=== PATIENT | male | born 1970 | race Two or more races ===

== ENCOUNTER 2016-08-27 13:44 | Emergency (ER) | payer MEDICAID ==
[~2016-08-27] VITALS: Ht 160 cm; Wt 74.7 kg
[2016-08-27] MEDS ORDERED: HYDROcodone/APAP 5/325 TABLET ONE (14:17)
[2016-08-27] MEDS ORDERED: SODIUM CHLORIDE FLUSH 10ML SYR IVF ONE (14:30)
[2016-08-27] MEDS ORDERED: SODIUM CHLORIDE 0.9% 1,000ML IVBOLUS ONE (14:30)
[2016-08-27] MEDS ORDERED: HYDROcodone/APAP 5/325 TABLET PO ONE (14:30)
[2016-08-27 14:37] LABS: BLOOD UREA NITROGEN 12 mg/dL (7-18)
[2016-08-27] MEDS ORDERED: MORPHINE SULFATE 4 MG/ML, 1ML ONE (16:01)
[2016-08-27] MEDS ORDERED: BACITRACIN ZINC OINT 500U/GM, 0.9 GM ONE (16:20)
[2016-08-27] MEDS ORDERED: MORPHINE SULFATE 4 MG/ML, 1ML IVPush ONE (16:30)
[2016-08-27] MEDS ORDERED: ONDANSETRON 2MG/ML, 2ML ONE (16:36)
[2016-08-27] MEDS ORDERED: ONDANSETRON 2MG/ML, 2ML IVPush ONE (17:00)
[2016-08-27 17:20] VITALS: BP 114/78
== END 2016-08-27 17:22 | disposition home or self-care (01) ==
LOC: ED 16:24
DX: T23.201A Burn of second degree of right hand, unspecified site, initial encounter (principal); T31.0 Burns involving less than 10% of body surface; T79.9XXA Unspecified early complication of trauma, initial encounter; W86.8XXA Exposure to other electric current, initial encounter; Y93.89 Activity, other specified; Y92.89 Other specified places as the place of occurrence of the external cause; Y99.8 Other external cause status
CPT/HCPCS: 36415; 70150; 72050; 80048; 82040; 82550; 85025; 93005; 96361; 96374; 96375; 99285; J2405; J7030

== ENCOUNTER 2016-12-17 22:50 | Emergency (ER) | payer MEDICAID ==
[~2016-12-17] VITALS: Ht 162.6 cm; Wt 75.0 kg
[2016-12-17] MEDS ORDERED: SODIUM CHLORIDE 0.9% 1,000ML IVBOLUS ONE (23:00)
[2016-12-17] MEDS ORDERED: LORazepam 2 MG/ML, 1ML IVPush ONE (23:00)
[2016-12-17] MEDS ORDERED: SODIUM CHLORIDE FLUSH 10ML SYR IVF ONE (23:00)
[2016-12-17 23:22] LABS: HEMATOCRIT 44.5 % (39.2-51.8); HEMOGLOBIN 14.8 g/dL (13.7-18.0); WHITE BLOOD COUNT 11.3 x10^3/uL (3.4-10)
[2016-12-17] MEDS ORDERED: LORazepam 2 MG/ML, 1ML ONE (23:22)
[2016-12-17 23:41] LABS: ASPARTATE AMINO TRANSFERASE 25 U/L (15-37); BLOOD UREA NITROGEN 16 mg/dL (7-18)
[2016-12-18 01:22] LABS: DAU SCREEN DISCLAIMER
[2016-12-18 02:43] VITALS: BP 119/63
== END 2016-12-18 02:46 | disposition home or self-care (01) ==
LOC: ED 23:48
DX: R56.9 Unspecified convulsions (principal); J45.909 Unspecified asthma, uncomplicated; F17.200 Nicotine dependence, unspecified, uncomplicated; F12.10 Cannabis abuse, uncomplicated
CPT/HCPCS: 36415; 70450; 80053; 80307; 81003; 83735; 85025; 93005; 96374; 99285; J2060; J7030

== ENCOUNTER 2017-03-16 09:37 | Emergency (ER) | payer MEDICAID ==
[~2017-03-16] VITALS: Ht 165.1 cm; Wt 75.3 kg
[2017-03-16] MEDS ORDERED: ALBUTEROL/IPRATROPIUM 2.5MG/0.5MG, 3 ML ONE ×2 (09:59→10:28)
[2017-03-16] MEDS ORDERED: ALBUTEROL/IPRATROPIUM 2.5MG/0.5MG, 3 ML NPPB SCH (10:00)
[2017-03-16 11:03] VITALS: BP 102/80
== END 2017-03-16 11:05 | disposition home or self-care (01) ==
LOC: ED 09:53
DX: J45.901 Unspecified asthma with (acute) exacerbation (principal); J20.9 Acute bronchitis, unspecified; B96.89 Other specified bacterial agents as the cause of diseases classified elsewhere
CPT/HCPCS: 71020; 93005; 94640; 99284; J7512; J7620

== ENCOUNTER 2018-06-09 15:43 | Inpatient (IN) | payer MEDICAID ==
[~2018-06-09] VITALS: Ht 160 cm; Wt 71.4 kg
[2018-06-09] MEDS ORDERED: ALBUTEROL/IPRATROPIUM 2.5MG/0.5MG, 3 ML NPPB ONE (16:00)
--- NOTE | 2018-06-09 16:17 | NUR ---
PATIENT SAFE IN BED, MEDICATED WITH PREDNISONE PER MAR, CALL LIGHT IN REACH, BED IN LOW POSITION WITH HOB ELEVATED, DENIES ADDITIONAL NEEDS, AWAITING RT TO SEE PATIENT.
[2018-06-09] MEDS ORDERED: ALBUTEROL/IPRATROPIUM 2.5MG/0.5MG, 3 ML ONE (16:25)
[2018-06-09] MEDS ORDERED: ALBUTEROL/IPRATROPIUM 2.5MG/0.5MG, 3 ML NPPB PRN (17:00)
[2018-06-09 17:18] LABS: RAPID INFLUENZA A POSITIVE (Negative); RAPID INFLUENZA B Negative (Negative)
[2018-06-09] MEDS ORDERED: OSELTAMIVIR 75 MG CAPSULE PO ONE (18:00)
[2018-06-09] MEDS ORDERED: OSELTAMIVIR 75 MG CAPSULE ONE (18:25)
[2018-06-09] MEDS ORDERED: IBUPROFEN 600 MG TABLET ONE (18:25)
[2018-06-09] MEDS ORDERED: SODIUM CHLORIDE FLUSH 10ML SYR IVF ONE (18:30)
[2018-06-09] MEDS ORDERED: SODIUM CHLORIDE 0.9% 1,000ML IVBOLUS ONE (18:30)
[2018-06-09 18:33] LABS: BASOPHILS % (AUTO) 0 % (0-1); EOSINOPHILS # (AUTO) 0.15 x10^3/uL (0-0.4); EOSINOPHILS % (AUTO) 2 % (1-7); LYMPHOCYTES # (AUTO) 0.75 x10^3/uL (1-3.4); LYMPHOCYTES % (AUTO) 7 % (22-44); MD NO; MEAN CORPUSCULAR HEMOGLOBIN 32.6 pg (27.5-34.5); MEAN CORPUSCULAR HGB CONC 34.3 g/dL (33.2-36.2); MEAN PLATELET VOLUME 7.7 fL (7.4-10.4); MONOCYTES # (AUTO) 0.26 x10^3/uL (0.2-0.8); MONOCYTES % (AUTO) 3 % (2-9); NEUTROPHILS % (AUTO) 89 % (42-75); PLATELET COUNT 248 x10^3/uL (130-400); RED BLOOD COUNT 4.82 x10^6/uL (4.38-5.82)
[2018-06-09 18:44] LABS: ALBUMIN 3.5 g/dL (3.4-5.0); ANION GAP 7 mmol/L (5-15); CALCIUM 8.6 mg/dL (8.5-10.1); CHLORIDE 108 mmol/L (98-107); CREATININE 1.17 mg/dL (0.7-1.3)
[2018-06-09] MEDS ORDERED: IBUPROFEN 600 MG TABLET PO ONE (19:00)
--- NOTE | 2018-06-09 19:07 | NUR ---
report received from elham davidson. pt resting on gurkameron, family at bedside, siderails up x2, call light within reach. awaiting room for transfer
[2018-06-09 20:03] VITALS: BP 119/65
[2018-06-09] MEDS ORDERED: 0.9 % SODIUM CHLORIDE 10 ML VIAL IV SCH (23:30)
[2018-06-10] MEDS ORDERED: hydrALAzine 20 MG/ML, 1ML IVPush PRN
[2018-06-10] MEDS ORDERED: LIDODERM 5% PATCH TD PRN
[2018-06-10] MEDS ORDERED: NICOTINE 7 MG/24 HR PATCH.TD24 TD SCH
[2018-06-10] MEDS ORDERED: ENOXAPARIN 40 MG/0.4 ML SQ SCH
[2018-06-10] MEDS ORDERED: ACETAMINOPHEN 325 MG TABLET PO PRN
[2018-06-10] MEDS ORDERED: TEMAZEPAM 15 MG CAPSULE PO PRN
[2018-06-10] MEDS ORDERED: ONDANSETRON ODT 4 MG PO PRN
[2018-06-10] MEDS ORDERED: BISACODYL 10 MG SUPP PR PRN
[2018-06-10] MEDS ORDERED: DOCUSATE 100 MG CAPSULE PO PRN
[2018-06-10] MEDS ORDERED: ALBUTEROL/IPRATROPIUM 2.5MG/0.5MG, 3 ML ONE (00:09)
[2018-06-10] MEDS: methylPREDNISolone SOD SUCC 40 MG/ML IVPush SCH ×4 (00:49→19:56)
[2018-06-10 00:56] VITALS: BP 113/63
[2018-06-10] MEDS: SODIUM CHLORIDE 0.9% 1,000 ML IV SCH ×3 (02:09→15:30)
[2018-06-10 05:28] LABS: ANION GAP 7 mmol/L (5-15); CALCIUM 8.1 mg/dL (8.5-10.1); CHLORIDE 111 mmol/L (98-107)
[2018-06-10 05:30] LABS: CREATININE 1.19 mg/dL (0.7-1.3)
[2018-06-10 05:47] LABS: BASOPHILS % (AUTO) 0 % (0-1); EOSINOPHILS % (AUTO) 0 % (1-7); LYMPHOCYTES # (AUTO) 0.57 x10^3/uL (1-3.4); LYMPHOCYTES % (AUTO) 7 % (22-44); MD NO; MEAN CORPUSCULAR HEMOGLOBIN 32.6 pg (27.5-34.5); MEAN CORPUSCULAR HGB CONC 34.2 g/dL (33.2-36.2); MEAN CORPUSCULAR VOLUME 95.2 fL (81-97); MONOCYTES # (AUTO) 0.15 x10^3/uL (0.2-0.8); MONOCYTES % (AUTO) 2 % (2-9); NEUTROPHILS # (AUTO) 7.39 x10^3/uL (1.8-6.8); NEUTROPHILS % (AUTO) 91 % (42-75); PLATELET COUNT 228 x10^3/uL (130-400); RED CELL DISTRIBUTION WIDTH 13.3 % (9.4-14.8)
[2018-06-10] MEDS: ALBUTEROL/IPRATROPIUM 2.5MG/0.5MG, 3 ML NPPB SCH ×3 (05:52→15:30)
[2018-06-10 07:50] VITALS: BP 118/70
[2018-06-10] MEDS: OSELTAMIVIR 75 MG CAPSULE PO SCH ×2 (08:31→21:55)
[2018-06-10] MEDS ORDERED: KETOROLAC 30 MG/1 ML IVPush PRN (10:00)
[2018-06-10 13:35] VITALS: BP 127/70
[2018-06-10] MEDS: BENZONATATE 100 MG CAPSULE PO SCH ×2 (15:20→21:55)
[2018-06-10 18:15] VITALS: BP 122/69
[2018-06-10] MEDS ORDERED: OSEL75CA PO (22:48)
[2018-06-10] MEDS ORDERED: BENZ100C PO (22:50)
[2018-06-10] MEDS ORDERED: PRED20TA PO (22:50)
== END 2018-06-10 23:00 | disposition home or self-care (01) | DRG 871 ==
LOC: ED 18:48 → EDIP 18:53 → ED 19:26 → 4NOR 19:50
PROVIDERS: ADMIT Internal Medicine; ATTEND Internal Medicine
DX: A41.9 Sepsis, unspecified organism (principal); J96.01 Acute respiratory failure with hypoxia; J44.1 Chronic obstructive pulmonary disease with (acute) exacerbation; J45.52 Severe persistent asthma with status asthmaticus; J10.1 Influenza due to other identified influenza virus with other respiratory manifestations; G40.909 Epilepsy, unspecified, not intractable, without status epilepticus; Z87.891 Personal history of nicotine dependence; Z83.3 Family history of diabetes mellitus; Z81.1 Family history of alcohol abuse and dependence; Z88.0 Allergy status to penicillin; Z88.6 Allergy status to analgesic agent
CPT/HCPCS: 36415; 87400; 99291; J7620; 71045; 80048; 82040; 85025; 93005; 94640; G0378; J1650; J2920; J7030; J7512

== ENCOUNTER 2018-08-16 17:03 | Emergency (ER) | payer MEDICAID ==
[~2018-08-16] VITALS: Ht 160 cm; Wt 73.6 kg
[~2018-08-16 17:03] MED LIST: BENZ100C PO; OSEL75CA PO; PRED20TA PO
[2018-08-16 17:06] VITALS: BP 130/86
--- NOTE | 2018-08-16 17:31 | NUR ---
Patient/Caregiver given discharge instructions and they have confirmed that they understand the instructions. Patient ambulatory with steady gait. PT LEFT WITH ALL PERSONAL BELONGINGS.
== END 2018-08-16 17:33 | disposition home or self-care (01) ==
LOC: ED 17:15
DX: B02.9 Zoster without complications (principal); J45.909 Unspecified asthma, uncomplicated; F17.200 Nicotine dependence, unspecified, uncomplicated
CPT/HCPCS: 99283

== ENCOUNTER 2018-09-10 11:15 | Emergency (ER) | payer MEDICAID ==
[~2018-09-10] VITALS: Ht 160 cm; Wt 72.1 kg
[2018-09-10 11:18] VITALS: BP 116/79
[2018-09-10] MEDS ORDERED: LIDOCAINE-MPF 1%, 5ML ONE (11:24)
[2018-09-10] MEDS ORDERED: BACITRACIN ZINC OINT 500U/GM, 0.9 GM ONE (11:55)
--- NOTE | 2018-09-10 12:24 | NUR ---
finger dressed with bacitracin dressing
== END 2018-09-10 12:25 | disposition home or self-care (01) ==
LOC: ED 11:45
DX: S61.210A Laceration without foreign body of right index finger without damage to nail, initial encounter (principal); X58.XXXA Exposure to other specified factors, initial encounter; Y93.89 Activity, other specified; Y92.69 Other specified industrial and construction area as the place of occurrence of the external cause; Y99.8 Other external cause status
CPT/HCPCS: 99283

== ENCOUNTER 2018-11-28 11:34 | Emergency (ER) | payer MEDICAID ==
[~2018-11-28] VITALS: Ht 160 cm; Wt 69.0 kg
[~2018-11-28 11:34] MED LIST changes: -OSEL75CA PO; +OSEL75CA26 PO
--- NOTE | 2018-11-28 11:44 | NUR ---
PT AMBULATORY TO ED ROOM 27 W/ LIMPING GAIT. DR PERKINS TO ROOM FOR EXAM. PT STATES HE STEPPED OFF 12 INCH STEP, FELT PAIN RT LOWER BACK. DENIES NUMBNESS/TINGLING TO LE'S. NO PAIN MEDS TAKEN. DENIES URINARY AND BM SX.
[2018-11-28] MEDS ORDERED: MOME13HF2 INH (11:53)
[2018-11-28] MEDS ORDERED: ALBU6.7H8 INH (11:53)
[2018-11-28] MEDS ORDERED: DIAZEPAM 5 MG TABLET PO ONE (12:00)
[2018-11-28] MEDS ORDERED: DIAZEPAM 5 MG TABLET ONE (12:00)
--- NOTE | 2018-11-28 12:08 | NUR ---
PT STATES HE HAS TRANSPORTATION HOME, WHEN DC'D. VALIUM GIVEN PER EMAR. PT RESTING ON BED, SIDE RAIL UP X1, CALL LIGHT W/IN REACH.
--- NOTE | 2018-11-28 13:19 | NUR ---
DOZING ON BED IN CURLED LT LATERAL POSITION. STATES SPASM HAS EASED A LITTLE, BUT STILL PAINFUL.
[2018-11-28 13:20] VITALS: BP 109/69
[2018-11-28] MEDS ORDERED: CYCLOBENZAPRINE 10 MG TABLET ONE (13:27)
[2018-11-28] MEDS ORDERED: HYDROcodone/APAP 5/325 TABLET ONE (13:27)
[2018-11-28] MEDS ORDERED: HYDROcodone/APAP 5/325 TABLET PO ONE (13:30)
[2018-11-28] MEDS ORDERED: CYCLOBENZAPRINE 10 MG TABLET PO ONE (13:30)
== END 2018-11-28 13:51 | disposition home or self-care (01) ==
LOC: ED 12:16
DX: S39.012A Strain of muscle, fascia and tendon of lower back, initial encounter (principal); J45.909 Unspecified asthma, uncomplicated; F17.200 Nicotine dependence, unspecified, uncomplicated; X58.XXXA Exposure to other specified factors, initial encounter; Y93.89 Activity, other specified; Y92.89 Other specified places as the place of occurrence of the external cause; Y99.8 Other external cause status
CPT/HCPCS: 99284

== ENCOUNTER 2018-12-10 05:14 | Emergency (ER) | payer MEDICAID ==
[~2018-12-10] VITALS: Ht 160 cm; Wt 69.5 kg
[2018-12-10 06:38] VITALS: BP 108/69
== END 2018-12-10 06:40 | disposition home or self-care (01) ==
LOC: ED 05:43
DX: J02.9 Acute pharyngitis, unspecified (principal); M79.10 Myalgia, unspecified site; J45.909 Unspecified asthma, uncomplicated; F17.200 Nicotine dependence, unspecified, uncomplicated; R50.81 Fever presenting with conditions classified elsewhere
CPT/HCPCS: 87081; 87147; 87880; 99283

== ENCOUNTER 2019-12-30 16:41 | Emergency (ER) | payer MEDICAID ==
[~2019-12-30] VITALS: Ht 160 cm; Wt 71.0 kg
[~2019-12-30 16:41] MED LIST changes: +ALBU6.7H8 INH; +MOME13HF2 INH
[2019-12-30] MEDS ORDERED: DIPHENHYDRAMINE 50 MG/ML, 1ML ONE (16:51)
[2019-12-30] MEDS ORDERED: FAMOTIDINE 20 MG/2 ML ONE (16:51)
[2019-12-30] MEDS ORDERED: EPINEPHRINE 1 MG/ML, 1ML ONE (16:54)
[2019-12-30] MEDS ORDERED: methylPREDNISolone SOD SUCC 125 MG/2 ML ONE (16:54)
--- NOTE | 2019-12-30 16:58 | NUR ---
TASK RN: PIV ESTABLISHED. PT TOLERATED WITH NO COMPLICATIONS.
[2019-12-30] MEDS ORDERED: EPINEPHRINE 1 MG/ML, 1ML SQ ONE (17:00)
[2019-12-30 17:11] VITALS: BP 122/74
--- NOTE | 2019-12-30 17:26 | NUR ---
LATE ENTRY D/T PT CARE: PT TO T2 FROM TRIAGE WITH CO ALLERGIC RXN AFTER EATING SHELL FISH, HX OF SAME WHICH WAS RELIEVED WITH BENADRYL. PT A&OX4, SPEECH SLIGHTLY MUFFLED, GENERALIZED HIVES/RASH NOTED. PT DENIES DIFFICULTY BREATHING/SWALLOWING BUT STATES THAT HIS "THROAT HURTS, LIKE ITS DRY". DENIES N/V/DROOLING. PT SPEAKING IN FULL SENTENCES WO DIFFICULTY; SPO2 >90% ON RA. BP/SPO2/ECG MONITORING IN PLACE. NSR ON MONITOR. ERP AT BEDSIDE FOR INITIAL ASSESSMENT. PT MEDICATED PER VERBAL ORDERS INCLUDING EPI IM. SO AT BEDSIDE.
[2019-12-30] MEDS ORDERED: DIPHENHYDRAMINE 50 MG/ML, 1ML IVPush ONE (17:30)
[2019-12-30] MEDS ORDERED: methylPREDNISolone SOD SUCC 125 MG/2 ML IVPush ONE (17:30)
[2019-12-30] MEDS ORDERED: FAMOTIDINE 20 MG/2 ML IVPush ONE (17:30)
--- NOTE | 2019-12-30 17:35 | NUR ---
PT RESTING CALMLY IN GURNEY W EYES CLOSED, EVEN/REGULAR RESIRATIONS NOTED. PT EASILY ARROUSABLE TO VOICE AND REPORTS RELIEF OF SYMPTOMS AT THIS TIME. PT/SO DENY NEEDS
--- NOTE | 2019-12-30 18:45 | NUR ---
PT CONTINUES TO DENY WORSENING S/S, REPORTS "FEELING GREAT". VSS. SPEECH LESS MUFFLED. DC EDUCATION PROVIDED PT DEMONSTRATES UNDERSTANDING. PT TRANSFERED SELF TO WHEELCHAIR, WHEELED TO DC WITH RN AND SO. SO TO TRANSPORT PT HOME.
== END 2019-12-30 19:06 | disposition home or self-care (01) ==
LOC: ED 18:32
DX: L50.9 Urticaria, unspecified (principal); T78.1XXA Other adverse food reactions, not elsewhere classified, initial encounter; J45.909 Unspecified asthma, uncomplicated; Z87.891 Personal history of nicotine dependence; X58.XXXA Exposure to other specified factors, initial encounter; Y93.89 Activity, other specified; Y92.89 Other specified places as the place of occurrence of the external cause; Y99.8 Other external cause status
CPT/HCPCS: 96372; 96374; 96375; 99284; J0171; J1200; J2930; J3490

== ENCOUNTER 2020-01-08 03:02 | Emergency (ER) | payer MEDICAID ==
[~2020-01-08] VITALS: Ht 160 cm; Wt 71.7 kg
[2020-01-08] MEDS ORDERED: MORPHINE SULFATE 4 MG/ML, 1ML ONE ×2 (03:25→04:26)
[2020-01-08] MEDS ORDERED: ONDANSETRON 2MG/ML, 2ML ONE ×2 (03:26→04:26)
[2020-01-08] MEDS ORDERED: ONDANSETRON 2MG/ML, 2ML IVPush ONE ×2 (03:30→04:30)
[2020-01-08] MEDS ORDERED: MORPHINE SULFATE 4 MG/ML, 1ML IVPush ONE ×2 (03:30→04:30)
[2020-01-08 03:38] LABS: BASOPHILS # (AUTO) 0.05 x10^3/uL (0-0.1); BASOPHILS % (AUTO) 1 % (0-1); EOSINOPHILS % (AUTO) 5 % (1-7); LYMPHOCYTES # (AUTO) 4.33 x10^3/uL (1-3.4); LYMPHOCYTES % (AUTO) 45 % (22-44); MD NO; MEAN CORPUSCULAR HEMOGLOBIN 31.7 pg (27.5-34.5); MEAN CORPUSCULAR HGB CONC 32.4 g/dL (33.2-36.2); MEAN CORPUSCULAR VOLUME 97.8 fL (81-97); MEAN PLATELET VOLUME 7.7 fL (7.4-10.4); MONOCYTES # (AUTO) 1.06 x10^3/uL (0.2-0.8); MONOCYTES % (AUTO) 11 % (2-9); NEUTROPHILS # (AUTO) 3.71 x10^3/uL (1.8-6.8); NEUTROPHILS % (AUTO) 38 % (42-75); PLATELET COUNT 256 x10^3/uL (130-400); RED BLOOD COUNT 4.59 x10^6/uL (4.38-5.82); RED CELL DISTRIBUTION WIDTH 13.4 % (9.4-14.8)
--- NOTE | 2020-01-08 03:45 | NUR ---
Pt provided with urinal, attempting to provide urine sample post medication administration. Pt states "i haven't been able to pee since this afternoon because it is too painful."
[2020-01-08 03:48] LABS: ANION GAP 7 mmol/L (5-15); CALCIUM 8.7 mg/dL (8.5-10.1); CHLORIDE 107 mmol/L (98-107)
[2020-01-08 03:50] LABS: CREATININE 1.35 mg/dL (0.7-1.3)
--- NOTE | 2020-01-08 04:15 | NUR ---
Urine sample collected and sent to lab
[2020-01-08 04:35] LABS: MICROSCOPIC AUTO
[2020-01-08 05:15] VITALS: BP 118/76
== END 2020-01-08 05:17 | disposition home or self-care (01) ==
LOC: ED 03:38
DX: N13.2 Hydronephrosis with renal and ureteral calculous obstruction (principal); R10.31 Right lower quadrant pain; F17.210 Nicotine dependence, cigarettes, uncomplicated; F12.10 Cannabis abuse, uncomplicated; R11.0 Nausea; J45.909 Unspecified asthma, uncomplicated; F10.10 Alcohol abuse, uncomplicated; K57.90 Diverticulosis of intestine, part unspecified, without perforation or abscess without bleeding
CPT/HCPCS: 36415; 74176; 80048; 81001; 85025; 96374; 96375; 96376; 99284; 99406; J2270; J2405

== ENCOUNTER 2020-06-03 01:06 | Emergency (ER) | payer MEDICAID ==
[~2020-06-03] VITALS: Ht 160 cm; Wt 75.0 kg
[2020-06-03] MEDS ORDERED: methylPREDNISolone SOD SUCC 125 MG/2 ML ONE (01:25)
[2020-06-03] MEDS ORDERED: EPINEPHRINE 1 MG/ML, 1ML ONE (01:25)
[2020-06-03] MEDS ORDERED: DIPHENHYDRAMINE 50 MG/ML, 1ML ONE (01:25)
[2020-06-03] MEDS ORDERED: FAMOTIDINE 20 MG/2 ML ONE (01:25)
[2020-06-03] MEDS ORDERED: DIPHENHYDRAMINE 50 MG/ML, 1ML IVPush ONE (01:30)
[2020-06-03] MEDS ORDERED: FAMOTIDINE 20 MG/2 ML IVPush ONE (01:30)
[2020-06-03] MEDS ORDERED: methylPREDNISolone SOD SUCC 125 MG/2 ML IVPush ONE (01:30)
[2020-06-03] MEDS ORDERED: EPINEPHRINE 1 MG/ML, 1ML SQ ONE (01:30)
[2020-06-03] MEDS ORDERED: SODIUM CHLORIDE 0.9% 1,000ML IVBOLUS ONE (01:30)
[2020-06-03 01:42] LABS: BASOPHILS % (AUTO) 1 % (0-1); EOSINOPHILS % (AUTO) 4 % (1-7); LYMPHOCYTES % (AUTO) 41 % (22-44); MEAN CORPUSCULAR HEMOGLOBIN 32.6 pg (27.5-34.5); MEAN CORPUSCULAR HGB CONC 34.3 g/dL (33.2-36.2); MEAN PLATELET VOLUME 7.6 fL (7.4-10.4); MONOCYTES % (AUTO) 8 % (2-9); NEUTROPHILS % (AUTO) 46 % (42-75); PLATELET COUNT 260 x10^3/uL (130-400); RED BLOOD COUNT 4.45 x10^6/uL (4.38-5.82); RED CELL DISTRIBUTION WIDTH 12.7 % (9.4-14.8)
[2020-06-03 01:50] LABS: MD NO
[2020-06-03 01:53] LABS: ALBUMIN 3.2 g/dL (3.4-5.0); ANION GAP 7 mmol/L (5-15); CALCIUM 8.5 mg/dL (8.5-10.1); CHLORIDE 113 mmol/L (98-107); CREATININE 1.16 mg/dL (0.7-1.3)
--- NOTE | 2020-06-03 03:08 | NUR ---
Pt states feeling better. In bed, resting, awakes to verbal. Pt denies any needs at this time. Family at bedside. Call light in reach. vss
[2020-06-03 04:35] VITALS: BP 105/63
--- NOTE | 2020-06-03 04:36 | NUR ---
Pt dc'd with written and verbal instructions. Pt and state they understand. Rx gone over with patient with understanding. IV dc'd intact. Pt instructed not to drive, is driving patient. Pt ambulatory out of ED without difficulty. Pt MOA, stable VS.
== END 2020-06-03 04:38 | disposition home or self-care (01) ==
LOC: ED 02:08
DX: R21 Rash and other nonspecific skin eruption (principal); T78.1XXA Other adverse food reactions, not elsewhere classified, initial encounter; R06.02 Shortness of breath; J45.909 Unspecified asthma, uncomplicated; Z87.891 Personal history of nicotine dependence; X58.XXXA Exposure to other specified factors, initial encounter; Y93.89 Activity, other specified; Y92.89 Other specified places as the place of occurrence of the external cause; Y99.8 Other external cause status
CPT/HCPCS: 36415; 71045; 80048; 82040; 85025; 96361; 96372; 96374; 96375; 99285; J0171; J1200; J2930; J7030

== ENCOUNTER 2020-10-31 15:45 | Emergency (ER) | payer MEDICAID ==
[~2020-10-31] VITALS: Ht 160 cm; Wt 69.8 kg
--- NOTE | 2020-10-31 16:27 | NUR ---
residential builder: Pt ambulatory to room from lobby at this time.
[2020-10-31 16:39] LABS: MICROSCOPIC INDICATED
[2020-10-31] MEDS ORDERED: ONDANSETRON 2MG/ML, 2ML ONE (16:55)
[2020-10-31] MEDS ORDERED: MORPHINE SULFATE 4 MG/ML, 1ML ONE ×2 (16:56→18:46)
[2020-10-31] MEDS ORDERED: SODIUM CHLORIDE FLUSH 10ML SYR IVF ONE (17:00)
[2020-10-31] MEDS ORDERED: ONDANSETRON 2MG/ML, 2ML IVPush ONE (17:00)
[2020-10-31] MEDS: MORPHINE SULFATE 4 MG/ML, 1ML IVPush PRN ×2 (17:11→18:50)
[2020-10-31 17:40] LABS: BASOPHILS % (AUTO) 0 % (0-1); EOSINOPHILS % (AUTO) 1 % (1-7); LYMPHOCYTES % (AUTO) 11 % (22-44); MEAN CORPUSCULAR HEMOGLOBIN 32.7 pg (27.5-34.5); MEAN CORPUSCULAR HGB CONC 33.8 g/dL (33.2-36.2); MEAN PLATELET VOLUME 7.8 fL (7.4-10.4); MONOCYTES % (AUTO) 6 % (2-9); NEUTROPHILS % (AUTO) 82 % (42-75); PLATELET COUNT 272 x10^3/uL (130-400); RED BLOOD COUNT 4.68 x10^6/uL (4.38-5.82); RED CELL DISTRIBUTION WIDTH 13.3 % (9.4-14.8)
[2020-10-31 17:55] LABS: ALANINE AMINOTRANSFERASE 31 U/L (12-78); ALBUMIN 3.6 g/dL (3.4-5.0); ANION GAP 4 mmol/L (5-15); CALCIUM 8.9 mg/dL (8.5-10.1); CHLORIDE 110 mmol/L (98-107); CREATININE 1.08 mg/dL (0.7-1.3)
[2020-10-31 17:58] LABS: ALKALINE PHOSPHATASE 93 U/L (45-117); BILIRUBIN,TOTAL 0.3 mg/dL (0.2-1.0); TOTAL PROTEIN 7.4 g/dL (6.4-8.2)
[2020-10-31 18:30] VITALS: BP 120/78
--- NOTE | 2020-10-31 19:22 | NUR ---
THIS FLOAT RN AT BEDSIDE TO DC PT FOR PRIMARY RNKYLE. PT AND SPOUSE VERBALIZED UNDERSTANDING TO DC INSTRUCTIONS. AMBULATORY C STEADY GAIT. VSS. WHEELED TO REGISTRATION FOR COMFORT. PT REPORTS IMPROVEMENT IN PAIN FROM 01/04 TO 06/06.
== END 2020-10-31 19:24 | disposition home or self-care (01) ==
LOC: ED 19:00
DX: N13.2 Hydronephrosis with renal and ureteral calculous obstruction (principal); J45.909 Unspecified asthma, uncomplicated; Z88.0 Allergy status to penicillin
CPT/HCPCS: 36415; 74176; 80053; 81001; 85025; 96374; 96375; 96376; 99284; J2270; J2405